=== PATIENT | male | born 1950 | race Caucasian/White ===

== ENCOUNTER 2017-03-21 09:14 | Day surgery (SDC) | payer BC, MEDICARE ==
[2017-03-17 08:55] VITALS: BMI 30.8
[~2017-03-21 09:14] MED LIST: LACTATED RINGERS 1,000 ML IV SCH
[2017-03-21 09:45] VITALS: TEMP 98.4
[2017-03-21] MEDS ORDERED: LIDOCAINE 1% 20 ML VIAL (10MG/ML) FOR IV START INTRADERMA ONE (09:45)
[2017-03-21] MEDS ORDERED: LIDOCAINE 1% INJ 10MG/ML (20 ML MDV) ONE (09:46)
[2017-03-21] MEDS ORDERED: PROPOFOL 10 MG/ML 20 ML VIAL IV ONE (09:46)
--- NOTE | 2017-03-21 10:03 | P.OP ---
Date of Procedure: 03/21/17 Preoperative Diagnosis: Screening colonoscopy Postoperative Diagnosis: Diverticulosis Procedure(s) Performed: Colonoscopy Anesthesia: MAC Surgeon: Daryl Llamas Pathology: none sent Condition: stable Disposition: PACU Description of Procedure: Patient's placed on the endoscopy table in the lateral position. He received IV sedation. Digital rectal exam was performed which revealed no abnormalities. The prostate was symmetrical without nodules. The flexible colonoscope was then placed patient anus and passed throughout the entire colon. The ileocecal valve was visualized. The cecum, ascending and transverse colon appeared normal. The descending and sigmoid colon had moderate diverticular changes. Scope was then brought back the rectum and this appeared normal. Scope was withdrawn for patient.
--- NOTE | 2017-03-21 10:04 | P.GSHP ---
History of Present Illness H&P Date: 03/21/17 Chief Complaint: Screening colonoscopy This a 66-year-old male referred from Dr. Moore. Patient rents today for screening colonoscopy. He denies a significant GI complaints. Past Medical History Past Medical History: Hypertension History of Any Multi-Drug Resistant Organisms: None Reported Additional Past Surgical History / Comment(s): colonoscopy Past Anesthesia/Blood Transfusion Reactions: No Reported Reaction Smoking Status: Former smoker - Past Family History Mother Family Medical History: Cancer Medications and Allergies Home Medications Medication Instructions Recorded Confirmed Type Losartan-Hctz 50-12.5 mg [Hyzaar 1 each PO DAILY 03/17/17 03/21/17 History 50-12.5] Allergies Allergy/AdvReac Type Severity Reaction Status Date / Time No Known Allergies Allergy Verified 03/21/17 09:24 Surgical - Exam Vital Signs Temp Pulse Resp BP Pulse Ox 98.4 F 84 18 136/75 96 03/21/17 09:44 03/21/17 09:44 03/21/17 09:44 03/21/17 09:44 03/21/17 09:44 - General well developed, no distress - Eyes PERRL - ENT normal pinna - Neck no masses - Respiratory normal expansion - Cardiovascular Rhythm: regular - Abdomen Abdomen: soft Assessment and Plan Assessment: We'll perform screening colonoscopy.
[2017-03-21 10:16] VITALS: BP 115/71; PULSE 81; RESP 16
== END 2017-03-21 10:33 | disposition home or self-care (01) ==
LOC: ORWHC2ENDO 09:14
PROVIDERS: ATTEND Surgery
DX: Z12.11 Encounter for screening for malignant neoplasm of colon (principal); K57.30 Diverticulosis of large intestine without perforation or abscess without bleeding; I10 Essential (primary) hypertension; Z79.899 Other long term (current) drug therapy; Z87.891 Personal history of nicotine dependence
CPT/HCPCS: J2001; J2704; G0121

== ENCOUNTER 2018-12-15 15:20 | Emergency (ER) | payer MEDICARE ==
[2018-12-15] MEDS ORDERED: ONDANSETRON 4 MG/2 ML VIAL IVP STA (16:08)
--- NOTE | 2018-12-15 16:15 | ED ---
Altered Mental Status HPI - General Source: patient, EMS Mode of arrival: EMS Limitations: no limitations <Gigi Garrison - Last Filed: 12/15/18 19:13> <Ahsan Shah - Last Filed: 12/15/18 21:35> - General Chief Complaint: Altered Mental Status Stated Complaint: Altered mental status Time Seen by Provider: 12/15/18 15:59 - History of Present Illness Initial Comments: Patient is a 68-year-old male presenting to emergency Department with a chief complaint of dizziness. Patient reports that he was walking when he felt a sudden onset of weakness and dizziness and went down on the table but never actually fell to the ground. His neighbor saw him and contacted EMS. Patient reports immediately after the episode of weakness which lasted approximately 5 minutes he developed sudden onset of nausea or vomiting. There is no episodes of shaking. At this time patient reports lightheadedness, nausea or vomiting but no chest pain, shortness of breath, abdominal pain or back pain. Patient is able to answer all questions. Patient denies any blurry vision, headaches, one- sided paresthesias or muscle weakness. (Gigi Garrison) - Related Data Home Medications Medication Instructions Recorded Confirmed Losartan [Cozaar] 50 mg PO DAILY 12/15/18 12/15/18 Allergies Allergy/AdvReac Type Severity Reaction Status Date / Time No Known Allergies Allergy Verified 12/15/18 19:38 Review of Systems ROS Other: All systems not noted in ROS Statement are negative. <Gigi Garrison - Last Filed: 12/15/18 19:13> ROS Other: All systems not noted in ROS Statement are negative. <Ahsan Shah - Last Filed: 12/15/18 21:35> ROS Statement: Those systems with pertinent positive or pertinent negative responses have been documented in the HPI. Past Medical History Past Medical History: Hypertension History of Any Multi-Drug Resistant Organisms: None Reported Additional Past Surgical History / Comment(s): colonoscopy Past Anesthesia/Blood Transfusion Reactions: No Reported Reaction Past Psychological History: No Psychological Hx Reported Smoking Status: Former smoker - Past Family History Mother Family Medical History: Cancer <Gigi Garrison - Last Filed: 12/15/18 19:13> General Exam Limitations: no limitations General appearance: alert, in no apparent distress Head exam: Present: atraumatic, normocephalic, normal inspection Eye exam: Present: normal appearance, PERRL, EOMI. Absent: conjunctival injection Pupils: Present: normal accommodation ENT exam: Present: normal exam, normal oropharynx, mucous membranes moist, TM's normal bilaterally, normal external ear exam Neck exam: Present: normal inspection, full ROM Respiratory exam: Present: normal lung sounds bilaterally Cardiovascular Exam: Present: regular rate, normal rhythm, normal heart sounds Extremities exam: Present: normal inspection, full ROM, normal capillary refill, other (+2 dorsalis pedis and posterior tibialis bilaterally.) Back exam: Present: normal inspection, full ROM Neurological exam: Present: alert, oriented X3, CN II-XII intact, reflexes normal. Absent: motor sensory deficit Psychiatric exam: Present: normal affect, normal mood Skin exam: Present: warm, intact, normal color <Gigi Garrison - Last Filed: 12/15/18 19:13> Course Vital Signs 12/15/18 12/15/18 12/15/18 15:34 16:55 17:21 Temperature 97.8 F Pulse Rate 81 72 89 Respiratory 18 18 18 Rate Blood Pressure 128/82 128/72 158/96 O2 Sat by Pulse 96 100 100 Oximetry 12/15/18 12/15/18 19:40 20:25 Temperature 97.8 F Pulse Rate 90 82 Respiratory 15 16 Rate Blood Pressure 149/90 155/89 O2 Sat by Pulse 96 95 Oximetry Medical Decision Making - Lab Data Result diagrams: 12/15/18 15:52 12/15/18 15:52 <Ggii Garrison - Last Filed: 12/15/18 19:13> - Lab Data Result diagrams: 12/15/18 15:52 12/15/18 15:52 <Ahsan Shah - Last Filed: 12/15/18 21:35> - Medical Decision Making Rectal decision making; this is a 68-year-old male we press that approximately 3 PM today while sitting with friends he slumped forward onto a table. He was unresponsive to them though he states he thought he could hear them talking. Soon thereafter he vomited several times for an hour denying any headache or chest pain or shortness of breath. He came to the emergency room. emergency room workup included lab work and CAT scan. CAT scan report to be negative. EKG was done showing sinus rhythm with first-degree AV block rare PVCs, incomp lete right bundle branch block currently no old EKG available to compare to. Neurologically the patient was attacked soon after arrival to the emergency room. No focal or lateralizing findings could be found. Repeat neuro exam performed at 9:15 PM, finds the patient to be neurologically intact.. Lungs are clear heart no murmur. Patient and family's questions were answered. No neurologist available at this facility so patient will be transferred to [facility]. Case discussed with Dr. Yanez at [facility] who accepts patient for transfer evaluation by the neurological service. Dr. Shah (PabloAhsan) - Lab Data Lab Results 12/15/18 12/15/18 12/15/18 Range/Units 15:52 15:52 15:52 WBC 4.5 (3.8-10.6) k/uL RBC 4.49 (4.30-5.90) m/uL Hgb 14.4 (13.0-17.5) gm/dL Hct 43.0 (39.0-53.0) % MCV 95.9 (80.0-100.0) fL MCH 32.1 (25.0-35.0) pg MCHC 33.5 (31.0-37.0) g/dL RDW 12.2 (11.5-15.5) % Plt Count 147 L (150-450) k/uL Neutrophils % 58 % Lymphocytes % 31 % Monocytes % 5 % Eosinophils % 3 % Basophils % 1 % Neutrophils # 2.6 (1.3-7.7) k/uL Lymphocytes # 1.4 (1.0-4.8) k/uL Monocytes # 0.2 (0-1.0) k/uL Eosinophils # 0.1 (0-0.7) k/uL Basophils # 0.0 (0-0.2) k/uL PT 10.2 (9.0-12.0) sec INR 0.9 (<1.2) APTT 21.2 L (22.0-30.0) sec Sodium 141 (137-145) mmol/L Potassium 3.7 (3.5-5.1) mmol/L Chloride 108 H (98-107) mmol/L Carbon Dioxide 22 (22-30) mmol/L Anion Gap 11 mmol/L BUN 17 (9-20) mg/dL Creatinine 1.05 (0.66-1.25) mg/dL Est GFR (CKD-EPI)AfAm 85 (>60 ml/min/1.73 sqM) Est GFR (CKD-EPI)NonAf 74 (>60 ml/min/1.73 sqM) Glucose 128 H (74-99) mg/dL Calcium 9.1 (8.4-10.2) mg/dL Total Bilirubin 0.4 (0.2-1.3) mg/dL AST 27 (17-59) U/L ALT 30 (21-72) U/L Alkaline Phosphatase 53 (38-126) U/L Troponin I (0.000-0.034) ng/mL Total Protein 7.0 (6.3-8.2) g/dL Albumin 4.2 (3.5-5.0) g/dL 12/15/18 Range/Units 15:52 WBC (3.8-10.6) k/uL RBC (4.30-5.90) m/uL Hgb (13.0-17.5) gm/dL Hct (39.0-53.0) % MCV (80.0-100.0) fL MCH (25.0-35.0) pg MCHC (31.0-37.0) g/dL RDW (11.5-15.5) % Plt Count (150-450) k/uL Neutrophils % % Lymphocytes % % Monocytes % % Eosinophils % % Basophils % % Neutrophils # (1.3-7.7) k/uL Lymphocytes # (1.0-4.8) k/uL Monocytes # (0-1.0) k/uL Eosinophils # (0-0.7) k/uL Basophils # (0-0.2) k/uL PT (9.0-12.0) sec INR (<1.2) APTT (22.0-30.0) sec Sodium (137-145) mmol/L Potassium (3.5-5.1) mmol/L Chloride (98-107) mmol/L Carbon Dioxide (22-30) mmol/L Anion Gap mmol/L BUN (9-20) mg/dL Creatinine (0.66-1.25) mg/dL Est GFR (CKD-EPI)AfAm (>60 ml/min/1.73 sqM) Est GFR (CKD-EPI)NonAf (>60 ml/min/1.73 sqM) Glucose (74-99) mg/dL Calcium (8.4-10.2) mg/dL Total Bilirubin (0.2-1.3) mg/dL AST (17-59) U/L ALT (21-72) U/L Alkaline Phosphatase (38-126) U/L Troponin I <0.012 (0.000-0.034) ng/mL Total Protein (6.3-8.2) g/dL Albumin (3.5-5.0) g/dL - EKG Data EKG Comments: First-degree AV block, no ST elevations Ventricular rate 79, MD interval 210, QRS duration 108, QT/QTC 396/454 (Gigi Garrison) Disposition <Gigi Garrison - Last Filed: 12/15/18 19:13> - Out of Hospital Transfer - Req. Specs Out of Hospital Transfer - Requested Specifics: Other Emergency Center ([facility]) <Ahsan Shah - Last Filed: 12/15/18 21:35> Clinical Impression: TIA (transient ischemic attack) Disposition: OTHER INSTITUTION NOT DEFINED Condition: Fair Instructions (If sedation given, give patient instructions): Altered Mental Status (ED), Transient Ischemic Attack (ED) Referrals: Jm Moore DO [Primary Care Provider] - 1-2 days
[2018-12-15 16:20] LABS: Basophils % (A) 1 %; Eosinophils # (A) 0.1 k/uL (0-0.7); Eosinophils % (A) 3 %; HGB 14.4 gm/dL (13.0-17.5); Lymphocytes # (A) 1.4 k/uL (1.0-4.8); Lymphocytes % (A) 31 %; MCH 32.1 pg (25.0-35.0); MCHC 33.5 g/dL (31.0-37.0); MCV 95.9 fL (80.0-100.0); Monocytes # (A) 0.2 k/uL (0-1.0); Monocytes % (A) 5 %; Neutrophils # (A) 2.6 k/uL (1.3-7.7); Neutrophils % (A) 58 %; Platelet Count 147 k/uL (150-450); RBC 4.49 m/uL (4.30-5.90); RDW 12.2 % (11.5-15.5); WBC 4.5 k/uL (3.8-10.6)
[2018-12-15 16:30] LABS: Albumin 4.2 g/dL (3.5-5.0); Calcium 9.1 mg/dL (8.4-10.2); Potassium 3.7 mmol/L (3.5-5.1); Total Bilirubin 0.4 mg/dL (0.2-1.3)
[2018-12-15 16:39] LABS: INR 0.9 (<1.2); Partial Thromboplastin Time 21.2 sec (22.0-30.0); Prothrombin Time 10.2 sec (9.0-12.0)
--- NOTE | 2018-12-15 16:54 | XR ---
EXAMINATION TYPE: XR chest 2V DATE OF EXAM: 12/15/2018 COMPARISON: NONE HISTORY: Altered mental status TECHNIQUE: Frontal and lateral views of the chest are obtained. FINDINGS: There is no heart failure nor confluent pneumonic infiltrate. Costophrenic angles are areli r. Bony thorax is intact. There is slight elevated right diaphragm. IMPRESSION: Slight elevated right diaphragm could relate to partial paralysis. Normal heart. No hear t failure.
--- NOTE | 2018-12-15 19:38 | CT ---
EXAMINATION TYPE: CT brain wo con DATE OF EXAM: 12/15/2018 COMPARISON: None HISTORY: ams, vomiting CT DLP: 1165.4 mGycm Automated exposure control for dose reduction was used. FINDINGS: Ventricles and sulci appear normal. There is no mass effect nor midline shift. There is no sign of in tracranial hemorrhage. The calvarium is intact. IMPRESSION: NEGATIVE CT SCAN OF THE BRAIN.
[2018-12-15] MEDS ORDERED: SODIUM CHLORIDE 0.9% 1,000 ML IV SCH (20:00)
[2018-12-15 22:02] VITALS: BP 141/84; PULSE 75; RESP 15; TEMP 97.2
[2018-12-15 22:05] LABS: Appearance,Urine Clear (Clear); Bilirubin,Urine Negative (Negative); Blood,Urine Negative (Negative); Color,Urine Yellow; Glucose,Urine (UA) Negative (Negative); Ketones,Urine Negative (Negative); Leukocyte Esterase,Urine Negative (Negative); Nitrite,Urine Negative (Negative); Protein,Urine Negative (Negative); Specific Gravity,Urine 1.011 (1.001-1.035); Urobilinogen,Urine <2.0 mg/dL (<2.0)
[2018-12-15 22:21] LABS: Amphetamine Screen,Urine Not Detected (NotDetected); Barbiturate Screen,Urine Not Detected (NotDetected); Benzodiazepines Screen,Urine Not Detected (NotDetected); Cocaine Screen,Urine Not Detected (NotDetected); Methadone Screen, Urine Not Detected (NotDetected); Opiate Screen,Urine Not Detected (NotDetected); Oxycodone Screen, Urine Not Detected (NotDetected); Phencyclidine Screen,Urine Not Detected (NotDetected); Tricyclic Antidepressant,Urine Not Detected (NotDetected); Urn Cannabinoid Scrn Detected (NotDetected)
== END 2018-12-15 22:15 | disposition short-term general hospital (02) ==
LOC: EC 15:20
DX: G45.9 Transient cerebral ischemic attack, unspecified (principal); I44.0 Atrioventricular block, first degree; I49.3 Ventricular premature depolarization; I45.10 Unspecified right bundle-branch block; R11.2 Nausea with vomiting, unspecified; I10 Essential (primary) hypertension; Z87.891 Personal history of nicotine dependence; Z79.899 Other long term (current) drug therapy
CPT/HCPCS: 36415; 93005; 80053; 84484; 85025; 85610; 85730; 81003; 80306; 71046; 70450; 99285; 96374; 96361 ×2; J2405

== ENCOUNTER 2021-01-23 11:40 | Emergency (ER) | payer MEDICARE ==
[2021-01-23 11:47] VITALS: PULSE 89; TEMP 98
[2021-01-23] MEDS: hydrALAZINE HCL 20 MG/ML 1 ML VIAL IVP STA ×2 (12:28→14:17)
[2021-01-23 12:42] LABS: Basophils % (A) 1 %; Eosinophils # (A) 0.1 k/uL (0-0.7); Eosinophils % (A) 3 %; HGB 15.7 gm/dL (13.0-17.5); Hyperchromasia Slight; Lymphocytes # (A) 1.3 k/uL (1.0-4.8); Lymphocytes % (A) 41 %; MCH 34.2 pg (25.0-35.0); MCHC 36.5 g/dL (31.0-37.0); MCV 93.6 fL (80.0-100.0); Mean Platelet Volume 8.3; Monocytes # (A) 0.2 k/uL (0-1.0); Monocytes % (A) 7 %; Neutrophils # (A) 1.4 k/uL (1.3-7.7); Neutrophils % (A) 44 %; Platelet Count 129 k/uL (150-450); RBC 4.59 m/uL (4.30-5.90); RDW 12.6 % (11.5-15.5); WBC 3.1 k/uL (3.8-10.6)
[2021-01-23 12:46] LABS: Calcium 9.1 mg/dL (8.4-10.2); Magnesium 2.3 mg/dL (1.6-2.3); Potassium 4.1 mmol/L (3.5-5.1)
--- NOTE | 2021-01-23 12:53 | ED ---
General Adult HPI - General Chief complaint: Recheck/Abnormal Lab/Rx Stated complaint: High Blood Pressure Time Seen by Provider: 01/23/21 12:07 Source: patient, EMS, RN notes reviewed, old records reviewed Mode of arrival: EMS Limitations: no limitations - History of Present Illness Initial comments: Patient is a 70-year-old male with past medical history remarkable for hypertension and has not followed up with the PCP in 2 years presents emergency department over concern for hypertension. He is concerned that his blood pressure requires better control, and has noticed over the last few days that when he monitors at home, and is slightly elevated.He may have burst blood vessel over his right eyelid over this time as well. 2 days ago he did have a mild unilateral headache that was approximately 110 resolved with a mild dose of aspirin. His no other acute complaints at this time. Denies any chest pain, shortness of breath, abdominal pain, nausea, vomiting. Has no back pain, lower extremity weakness or edema. Denies any numbness or weakness or sensory deficits. He has no other acute complaints at this time. He is on losartan 50 mg at home for his hypertension. He was, chills, sick contacts. No history of brain aneurysms in himself or family members. His no other acute complaints at this time. He presents over concern for his hypertension. He states he is compliant with his medications. I evaluated the patient when he was placed in a room. Patient is not on blood thinners. - Related Data Home Medications Medication Instructions Recorded Confirmed Losartan [Cozaar] 50 mg PO DAILY 12/15/18 01/23/21 Glucosam/Eulalio-Msm1/C/Roni/Bosw 1 tab PO DAILY 01/23/21 01/23/21 [Glucosamine-Chondroitin Tablet] Multivitamins, Thera [Multivitamin 1 tab PO DAILY 01/23/21 01/23/21 (formulary)] Allergies Allergy/AdvReac Type Severity Reaction Status Date / Time No Known Allergies Allergy Verified 01/23/21 13:01 Review of Systems ROS Statement: Those systems with pertinent positive or pertinent negative responses have been documented in the HPI. Review of Systems: CONST: Denies fever EYES: Denies blurry vision ENT: Denies nasal congestion C/V: Denies Chest pain RESP: Denies shortness of breath GI: Denies abdominal pain : Denies dysuria SKIN: Denies rash. MSK: Denies joint pain. NEURO: Denies headache ROS Other: All systems not noted in ROS Statement are negative. Past Medical History Past Medical History: Hypertension History of Any Multi-Drug Resistant Organisms: None Reported Additional Past Surgical History / Comment(s): colonoscopy Past Anesthesia/Blood Transfusion Reactions: No Reported Reaction Past Psychological History: No Psychological Hx Reported Smoking Status: Never smoker Past Alcohol Use History: Daily Past Drug Use History: Marijuana - Past Family History Mother Family Medical History: Cancer General Exam - General Exam Comments Initial Comments: General: Appears in no acute distress. HEAD: Normal with no signs of head trauma. EYES: PERRLA, EOMI, conjunctiva normal, no discharge. Pupils are 3 mm equal bilaterally. ENT: Hearing grossly intact, normal oropharynx. RESPIRATORY: Clear breath sounds bilaterally. No wheezes, rales, or rhonchi. C/V: Regular rate and rhythm. S1 and S2 auscultated, no edema, peripheral pulses 2+ and intact throughout ABD: Abd is soft, nontender, nondistended EXT: Normal range of motion, no obvious deformity SKIN: No rashes or lesions observed on exposed skin. Patient does have bruising on his right upper eyelid that is nontender. He is to be possibly a burst blood vessel. No eye involvement. NEURO: Alert and oriented x 4. Cranial nerves II-XII intact. No focal sensory or strength deficits. Patient is able to ambulate without difficulty. NIH is 0. GCS is 15. Cerebellar function is intact as evident by normal finger to nose testing. Limitations: no limitations Course Vital Signs 01/23/21 01/23/21 01/23/21 11:44 12:00 12:28 Temperature 98.0 F Pulse Rate 89 Respiratory 20 Rate Blood Pressure 204/123 199/114 192/109 O2 Sat by Pulse 97 97 Oximetry 01/23/21 01/23/21 01/23/21 13:00 13:46 13:52 Temperature Pulse Rate Respiratory 18 Rate Blood Pressure 178/103 174/66 181/105 O2 Sat by Pulse Oximetry 01/23/21 01/23/21 01/23/21 14:00 14:13 15:00 Temperature Pulse Rate Respiratory Rate Blood Pressure 181/105 182/102 171/93 O2 Sat by Pulse Oximetry 01/23/21 15:15 Temperature Pulse Rate Respiratory Rate Blood Pressure 175/94 O2 Sat by Pulse Oximetry Medical Decision Making - Medical Decision Making Based on the patient's presentation and physical exam, he appears to be experiencing asymptomatic hypertension with a history of hypertension at this time. Blood pressure was over 200 systolic in triage. Patient does state he is anxious and is concerned that something may be going on. However he has no acute complaints otherwise at this time. States he did take his 50 mg losartan today. However I would like to obtain a screening EKG as well as screening labo ratory studies including assessing kidney function. He'll be administered 10 mg of IV hydralazine. Blood pressure is already improving from over 200 systolic to 190 systolic here in the department. He'll be continued on continuous cardiac monitoring. Patient was in agreement this plan. Patient's EKG showed normal sinus rhythm with no signs of acute ischemia.Chest x-ray showed no acute cardiopulmonary process. Laboratory studies are unremarkable except for mild thrombocytopenia of 129, which appears to be chronic.. Following antihypertensive medication, patient's blood pressure is improved. Patient remains asymptomatic at this time. As the patient is expressing a symptomatically hypertension, I do not believe that we need to aggressively lower it at this time. He does have plans to follow-up with his physician first thing next week. I believe it is safe for him to be discharged home at this time. I instructed the patient to follow up with their PCP in the next 3 days. I explained that the patient should return to the emergency department if they exp erience any worsening symptoms. Strict return precautions were discussed with the patient. The patient expressed understanding of these instructions. I answered all questions that the patient had. The patient was discharged home in good condition with their prescriptions and follow up information. - Lab Data Result diagrams: 01/23/21 12:21 01/23/21 12:21 Lab Results 01/23/21 01/23/21 Range/Units 12:21 12:21 WBC 3.1 L (3.8-10.6) k/uL RBC 4.59 (4.30-5.90) m/uL Hgb 15.7 (13.0-17.5) gm/dL Hct 43.0 (39.0-53.0) % MCV 93.6 (80.0-100.0) fL MCH 34.2 (25.0-35.0) pg MCHC 36.5 (31.0-37.0) g/dL RDW 12.6 (11.5-15.5) % Plt Count 129 L (150-450) k/uL MPV 8.3 Neutrophils % 44 % Lymphocytes % 41 % Monocytes % 7 % Eosinophils % 3 % Basophils % 1 % Neutrophils # 1.4 (1.3-7.7) k/uL Lymphocytes # 1.3 (1.0-4.8) k/uL Monocytes # 0.2 (0-1.0) k/uL Eosinophils # 0.1 (0-0.7) k/uL Basophils # 0.0 (0-0.2) k/uL Hyperchromasia Slight Sodium 138 (137-145) mmol/L Potassium 4.1 (3.5-5.1) mmol/L Chloride 108 H (98-107) mmol/L Carbon Dioxide 24 (22-30) mmol/L Anion Gap 6 mmol/L BUN 13 (9-20) mg/dL Creatinine 1.08 (0.66-1.25) mg/dL Est GFR (CKD-EPI)AfAm 81 (>60 ml/min/1.73 sqM) Est GFR (CKD-EPI)NonAf 70 (>60 ml/min/1.73 sqM) Glucose 123 H (74-99) mg/dL Calcium 9.1 (8.4-10.2) mg/dL Magnesium 2.3 (1.6-2.3) mg/dL - EKG Data -: EKG Interpreted by Me EKG Comments: 12-lead Electrocardiogram Interpretation Note EKG was reviewed and interpreted by myself. 12-lead ECG performed at 1246 is interpreted by me as revealing normal sinus rhythm at a rate of 83 beats per minute. Rankin is normal. MD interval is 184 ms, QRS duration is 100 ms, QTc is 441 ms.. There were no ST or T wave abnormalities to suggest myocardial ischemia or injury. R wave progression across the precordium was satisfactory. By my interpretation this EKG is non-diagnostic for acute ischemia. Disposition Clinical Impression: Asymptomatic hypertension Disposition: HOME SELF-CARE Condition: Good Instructions (If sedation given, give patient instructions): Hypertension (ED) Is patient prescribed a controlled substance at d/c from ED?: No Referrals: Jm Moore DO [Primary Care Provider] - 1-2 days
[2021-01-23] MEDS ORDERED: ASPIRIN 81 MG PO STA (13:06)
--- NOTE | 2021-01-23 13:47 | XR ---
EXAMINATION TYPE: XR chest 2V DATE OF EXAM: 01/23/2021 COMPARISON: Chest x-ray December 15, 2018 HISTORY: Hypertension and chest pain TECHNIQUE: Frontal and lateral views of the chest are obtained. FINDINGS: There is no suspicious new focal air space opacity, pleural effusion, or pneumothorax seen . The cardiac silhouette size is stable and within normal limits. The osseous structures are intac t. IMPRESSION: No acute process. No significant change from prior.
[2021-01-23 13:53] VITALS: RESP 18
[2021-01-23 15:16] VITALS: BP 175/94
== END 2021-01-23 15:33 | disposition home or self-care (01) ==
LOC: EC 11:40
DX: I10 Essential (primary) hypertension (principal); F12.90 Cannabis use, unspecified, uncomplicated; Z79.899 Other long term (current) drug therapy
CPT/HCPCS: 36415; 93005; 80048; 83735; 85025; 71046; 99284; 96374; J0360

== ENCOUNTER 2021-04-30 12:04 | Emergency (ER) | payer MEDICARE ==
[2021-04-30 12:15] VITALS: RESP 18; TEMP 98.3
[2021-04-30] MEDS ORDERED: HYDROmorphone 0.5 MG/0.5 ML SYRINGE IVP STA ×2 (12:48→14:22)
[2021-04-30] MEDS ORDERED: KETOROLAC 30 MG/ML 1 ML VIAL IVP STA (12:48)
--- NOTE | 2021-04-30 13:29 | XR ---
EXAMINATION TYPE: XR wrist complete LT DATE OF EXAM: 04/30/2021 COMPARISON: None available INDICATION: Pain and fall TECHNIQUE: 4 views of the left wrist FINDINGS: Comminuted fracture involving the distal radial metaphysis extending to the distal radioulnar articul ation and radiocarpal articulation. Dorsal angulation of the distal fracture fragment with bone fragments measuring up to 18 mm. Suspected tiny avulsion fracture of the ulnar styloid process. Tiny osteophytosis of the radiocarpal articulation. IMPRESSION: Fractured distal radius with suspected tiny avulsion fracture of the ulnar styloid process as describ ed above. Recommend orthopedic consultation.
[2021-04-30] MEDS ORDERED: ACET/COD 300 MG/30 MG STARTER PACK 6 TAB BTL PO STA (13:41)
--- NOTE | 2021-04-30 13:41 | ED ---
General Adult HPI - General Chief complaint: Extremity Injury, Upper Stated complaint: Fall/Lt Arm Injury Time Seen by Provider: 04/30/21 12:15 Source: patient, RN notes reviewed, old records reviewed Mode of arrival: ambulatory Limitations: no limitations - History of Present Illness Initial comments: This a 70-year-old male who presents to the emergency department stating that he fell and landed on a log onto his left wrist. Patient has deformity left wrist he came in because he is concerned that it might broke his wrist. Patient denies any elbow pain or hand pain. Patient denies any shoulder pain. Patient denies any head or neck pain. Patient denies any other complaints at this time. Patient states he slipped on the ice and that was the cause of the fall. - Related Data Home Medications Medication Instructions Recorded Confirmed Glucosam/Eulalio-Msm1/C/Roni/Bosw 1 tab PO DAILY 01/23/21 04/30/21 [Glucosamine-Chondroitin Tablet] Multivitamins, Thera [Multivitamin 1 tab PO DAILY 01/23/21 04/30/21 (formulary)] Ibuprofen [Motrin Ib] 600 mg PO Q8H PRN 04/30/21 04/30/21 Losartan-Hctz 50-12.5 mg [Hyzaar 1 tab PO DAILY 04/30/21 04/30/21 50-12.5] Previous Rx's Medication Instructions Recorded Ibuprofen [Motrin] 600 mg PO Q6HR PRN #20 tab 04/30/21 Allergies Allergy/AdvReac Type Severity Reaction Status Date / Time No Known Allergies Allergy Verified 01/23/21 13:01 Review of Systems ROS Statement: Those systems with pertinent positive or pertinent negative responses have been documented in the HPI. ROS Other: All systems not noted in ROS Statement are negative. Past Medical History Past Medical History: Hypertension History of Any Multi-Drug Resistant Organisms: None Reported Additional Past Surgical History / Comment(s): colonoscopy Past Anesthesia/Blood Transfusion Reactions: No Reported Reaction Past Psychological History: No Psychological Hx Reported Smoking Status: Never smoker Past Alcohol Use History: Daily Past Drug Use History: Marijuana - Past Family History Mother Family Medical History: Cancer General Exam - General Exam Comments Initial Comments: GENERAL Patient is well-developed and well-nourished. Patient is in mild distress. EYES Patient's pupils are equal and round. Extraocular motion is intact SKIN Unremarkable NEURO The patient is alert and oriented 3 PYSCH Patient has normal interpersonal interactions. MUSCULOSKELETAL Patient has deformity of the left breast and is tender and swollen about the wrist. Limitations: no limitations Course Vital Signs 04/30/21 12:13 Temperature 98.3 F Pulse Rate 104 H Respiratory 18 Rate Blood Pressure 185/83 O2 Sat by Pulse 98 Oximetry Procedures - Orthopedic Splinting/Casting Injury #1 Side: left Upper Extremity Injury Location: wrist Upper Extremity Immobilizer: volar splint Medical Decision Making - Medical Decision Making X-ray shows a distal radius fracture with a small avulsion fracture of the ulna. There is minimal displacement. Disposition Clinical Impression: Fracture of radius and ulna near wrist Disposition: HOME SELF-CARE Condition: Good Instructions (If sedation given, give patient instructions): Wrist Fracture in Adults (ED) Prescriptions: Ibuprofen [Motrin] 600 mg PO Q6HR PRN #20 tab PRN Reason: For pain Is patient prescribed a controlled substance at d/c from ED?: No Referrals: Faisal Wei MD [STAFF PHYSICIAN] - 1-2 days Time of Disposition: 13:41
[2021-04-30 14:35] VITALS: BP 152/95; PULSE 93
== END 2021-04-30 14:32 | disposition home or self-care (01) ==
LOC: EC 12:04
DX: S52.502A Unspecified fracture of the lower end of left radius, initial encounter for closed fracture (principal); S52.602A Unspecified fracture of lower end of left ulna, initial encounter for closed fracture; I10 Essential (primary) hypertension; F12.90 Cannabis use, unspecified, uncomplicated; W18.30XA Fall on same level, unspecified, initial encounter
CPT/HCPCS: 99283; 96374; 96375; 96376; 29125; 73110; J1885; J1170

== ENCOUNTER → 2021-05-01 | Outpatient (CLI) | payer MEDICARE ==
[2021-05-01 23:17] LABS: HCT 45.9 % (39.6-50.0); HGB 15.5 g/dL (13.0-17.0); MCH 31.6 pg (27.0-32.0); MCHC 33.8 g/dL (32.0-37.0); MCV 93.7 fL (80.0-97.0); Mean Platelet Volume 10.6 fL (9.5-12.2); NRBC Per 100 WBC 0 /100 WBCS (0.0-0.0); Platelet Count 148 X 10*3/uL (140-440); RDW 12.1 % (11.5-14.5); WBC 4.66 X 10*3/uL (4.50-10.00)
[2021-05-02 02:56] LABS: Anion Gap 12.5 mmol/L (10.00-18.00); Carbon Dioxide 23.5 mmol/L (20.0-27.5)
== END | disposition home or self-care (01) ==
LOC: LABPAT 14:32
PROVIDERS: ATTEND Orthopaedic Surgery
DX: Z01.812 Encounter for preprocedural laboratory examination (principal); S52.572A Other intraarticular fracture of lower end of left radius, initial encounter for closed fracture; X58.XXXA Exposure to other specified factors, initial encounter
CPT/HCPCS: 80051; 85027

== ENCOUNTER 2021-05-05 05:48 | Day surgery (SDC) | payer MEDICARE ==
[2021-05-04 09:12] VITALS: BMI 31.4
--- NOTE | 2021-05-04 09:38 | HP ---
HISTORY AND PHYSICAL CHIEF COMPLAINT: Left wrist pain. HISTORY OF PRESENT ILLNESS: The patient is a 70-year-old retired gentleman who presents with left wrist pain after an injury on 04/30/2021. He slipped and fell on the ice at home. Initially he was seen in the emergency room and placed in a splint. He denies previous injury. PAST MEDICAL HISTORY: Significant for hypertension. PAST SURGICAL HISTORY: Negative. CURRENT MEDICATIONS: Hydrocodone and losartan. ALLERGIES: HE DENIES DRUG ALLERGIES. FAMILY HISTORY: Significant for cancer. SOCIAL HISTORY: Significant for tobacco use. REVIEW OF SYSTEMS: Sixteen-point review of systems otherwise reviewed and is noncontributory. PHYSICAL EXAMINATION: On examination, the patient is approximately 6 feet 2 inches, 245 pounds of endomorphic habitus. HEENT exam is nonfocal. Neck is supple. He is nontender about the left shoulder and elbow. On examination of his left wrist, he has moderate swelling. He has tenderness over the distal radius. He has limited motion secondary to pain. His distal neurovascular exam appears intact in the digits. 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 He has moderate digital stiffness. X-rays of the left wrist obtained at the hospital show an intra-articular distal radius fracture with dorsal comminution and moderate displacement. This appears to be a three- part fracture. IMPRESSION: Left three-part intra-articular distal radius fracture, displaced/comminuted. RECOMMENDATIONS: I talked to the patient at length regarding his condition along with treatment options. At this point I recommend proceeding with surgical intervention. We will plan to proceed with open reduction and internal fixation of this fracture. We will potentially perform that as an outpatient procedure. Risks and benefits were discussed at length in layman's terms. MMODL / IJN: [id number] /
[2021-05-05] MEDS ORDERED: LACTATED RINGERS 1,000 ML IV SCH (06:02)
[2021-05-05] MEDS ORDERED: ONDANSETRON 4 MG/2 ML VIAL IVP ONE (06:02)
[2021-05-05] MEDS ORDERED: LIDOCAINE 1% (10MG/ML) FOR IV START INTRADERMA PRN (06:02)
[2021-05-05] MEDS ORDERED: HYDROmorphone 0.5 MG/0.5 ML SYRINGE IVP PRN (07:00)
[2021-05-05] MEDS ORDERED: fentaNYL (PF) 50 MCG/ML 2 ML AMP IV ONE (07:05)
[2021-05-05] MEDS ORDERED: MIDAZOLAM 2 MG/2 ML VIAL IV ONE (07:05)
[2021-05-05] MEDS ORDERED: PROPOFOL 10 MG/ML 20 ML VIAL IV ONE (07:20)
[2021-05-05] MEDS ORDERED: SODIUM CHLORIDE 0.9% (PF) 10 ML VIAL ONE (07:20)
[2021-05-05] MEDS ORDERED: PHENYLEPHRINE-0.9% NACL SYG 1,000 MCG/10 ML SYRINGE ONE (07:20)
[2021-05-05] MEDS ORDERED: ROPIVACAINE 5 MG/ML 30 ML VIAL ONE (07:20)
[2021-05-05] MEDS ORDERED: LIDOCAINE 1% INJ 10MG/ML (20 ML MDV) ONE (07:20)
[2021-05-05] MEDS ORDERED: ceFAZolin 1,000 MG in SODIUM CHLORIDE 0.9% 1,000 ML IRRIGATION ONE (07:58)
[2021-05-05] MEDS ORDERED: LACTATED RINGERS 1,000 ML IV ONE (08:54)
--- NOTE | 2021-05-05 09:18 | P.OP ---
Date of Procedure: 05/05/21 Preoperative Diagnosis: Displaced three-part intra-articular left distal radius fracture Postoperative Diagnosis: Same Procedure(s) Performed: Open reduction and internal fixation left 3 part intra-articular distal radius fracture Implants: Arthrex wide 3-hole volar distal radial plate Anesthesia: tanja NELSON Surgeon: Faisal Wei Utility Maintenance Worker #1: Govind Israel Estimated Blood Loss (ml): 10 Pathology: none sent Condition: stable Disposition: PACU Indications for Procedure: The patient's a 70-year-old male presents with left wrist pain after recent fall. Upon evaluation he was noted to have displaced intra-articular left distal radius fracture. A discussion of the risks and benefits of operative intervention was made with patient. He opted to proceed with surgery. Operative risks to include infection, neurovascular injury, development of blood clots, possible development of nonunion/malunion for subsequent procedures was discussed. Informed consent was obtained. Operative Findings: as below Description of Procedure: The patient was brought to the operating room, and after induction of general anesthesia the left upper extremity was prepped and draped in normal fashion. The tourniquet was inflated to 250 mmHg. An 8 cm incision was then made along the volar radial aspect of the left wrist centered over the flexor carpi radialis. The skin and subcu tissues were divided sharply. Electrocautery was used for hemostasis. The flexor carpi radialis sheath was opened and the tendon was gently retracted ulnarly and the radial artery retracted radially. The underlying fascia was opened. The contents the carpal canal were bluntly dissected ulnarly. A self-retaining retractor was placed. The pronator quadratus was elevated off the radial aspect the distal radius. The fracture site was identified and cleaned of clot and debris. The fracture was then provisionally reduced with longitudinal traction and manipulation. This is verified with fluoroscopy. A wide 3 hole volar plate was placed provisionally along the volar surface. This was held with K wires. This was verified with fluoroscopy. A 3.5 mm cortical screws placed proximally to secure the plate against the distal radius. I then placed partially threaded locking pegs along the distal row. Again this was done with the aid of fluoroscopy. The proximal row was filled in a similar fashion with the appropriate length locking pegs. The remaining 3.5 mm cortical screws were placed proximally. Final fluoroscopic views to include AP, PA, and elevated lateral showed adequate reduction of the fracture and placement of the implant. The articular surface appeared to be well aligned with less than 1 mm articular step-off. The wound was irrigated with normal saline. The pronator quadratus was repaired with simple 3-0 Vicryl suture. The subcu tissues reapproximated interrupted 3-0 Vicryl suture. The skin was reprepped with 4-0 subcuticular Prolene suture. Steri-Strips were applied. The tourniquet was deflated with approximately 1 hour total tourniquet time. A sterile dressing was applied in addition to a volar splint. The patient was awoken from general anesthesia and transferred to the recovery room in good condition. Blood loss was estimated at 10 mL. No complications were incurred. Sponge and needle counts were correct at the end the case. Govind HANCOCK assisted during the major components the case to include positioning, exposure, implantation, and closure.
[2021-05-05 09:32] VITALS: TEMP 97.7
--- NOTE | 2021-05-05 09:42 | XR ---
EXAMINATION TYPE: XR wrist limited LT DATE OF EXAM: 05/05/2021 COMPARISON: X-ray dated the 04/30/2021 INDICATION: Distal radial ORIF TECHNIQUE: No images in PACS FINDINGS: Fluoroscopic guided ORIF of distal radial fracture. Fluoroscopic time 38 seconds. No images in PACS. IMPRESSION: As above
[2021-05-05 10:01] VITALS: RESP 20
--- NOTE | 2021-05-05 10:14 | P.ANPRN ---
Procedure Note - Anesthesia - Nerve Block Performed Left Axillary Single Time Out Performed: Yes ([id number]) Date of Procedure: 05/05/21 Procedure Start Time: 07:05 Procedure Stop Time: 07:12 Location of Patient: PreOp Indication: Acute Post-Operative Pain, Requested by Surgeon Specifically requested for management of pain by DrMagdy: Faisal Wei Sedation Type: Sedate with meaningful contact maintained Preparation: Sterile Prep Position: Supine Catheter: None Needle Types: Pajunk Needle Gauge: 21 Ultrasound used to visualize needle placement: Yes Ultrasound used to observe medication spread: Yes Injectate: 0.5% Ropivacaine (see comment for volume) (30cc + 10cc saline. 10cc each radial, median, ulnar, mskcut) Blood Aspirated: No Pain Paresthesia on Injection Noted: No Resistance on Injection: Normal Image Stored and Saved: Yes Events: Uneventful and Well Tolerated
[2021-05-05] MEDS ORDERED: Acetaminophen-Codeine 300-30mg TAB PO ONE ×2 (10:20→10:22)
[2021-05-05] MEDS ORDERED: Acetaminophen-Codeine 300-30mg TAB ONE (10:20)
--- NOTE | 2021-05-05 10:20 | FL ---
EXAMINATION TYPE: FL guidance operating room DATE OF EXAM: 05/05/2021 CLINICAL HISTORY: ORIF distal radius TECHNIQUE: Fluoroscopy. COMPARISON: X-ray dated 04/30/2021 FINDINGS: Fluoroscopic guidance was provided during procedure performed by the orthopedic surgeon. A total of 38 seconds of fluoroscopic time was utilized during the procedure and 3 spot images were ac quired. ORIF of the distal radial fracture using a plate and multiple screws. Slightly negative ulnar variance. IMPRESSION: As Above.
[2021-05-05 10:30] VITALS: BP 149/76; PULSE 74
== END 2021-05-05 10:50 | disposition home or self-care (01) ==
LOC: OR 05:48
PROVIDERS: ATTEND Orthopaedic Surgery
DX: S52.572A Other intraarticular fracture of lower end of left radius, initial encounter for closed fracture (principal); W00.0XXA Fall on same level due to ice and snow, initial encounter; I10 Essential (primary) hypertension; Z80.9 Family history of malignant neoplasm, unspecified; Z79.891 Long term (current) use of opiate analgesic; Z79.899 Other long term (current) drug therapy
CPT/HCPCS: 25609; 64417; 76942; 73100; C1713 ×2; J2250; J0690 ×2; J2405; J2001; J3010; J2795; J2370; J2704; 64415

== ENCOUNTER → 2024-05-17 | Outpatient (CLI) | payer MEDICARE ==
--- NOTE | 2024-05-17 15:24 | P.PAINCN ---
History of Present Illness - History of Present Illness This is a 73-year-old pleasant gentleman who had a fall on ice in February his year since then he has been having low back pain radiating down to left lower extremity. Pain is located in the low back going down to left lower extremity in the back of left calf and lateral aspect of left foot area. Pain is there all the time with any activity that makes his pain worse. Medication makes his pain slightly controllable. Denies any bowel or bladder dysfunction. Complains of some weakness in his left lower extremity. Denies any loss of sensation in lower extremities. Past Medical History Past Medical History: Hypertension History of Any Multi-Drug Resistant Organisms: None Reported Past Surgical History: No Surgical Hx Reported Additional Past Surgical History / Comment(s): colonoscopy Past Anesthesia/Blood Transfusion Reactions: No Reported Reaction Past Psychological History: No Psychological Hx Reported Smoking Status: Never smoker Past Alcohol Use History: None Reported Additional Past Alcohol Use History / Comment(s): quit smoking 40 yrs ago, smoked 5 yrs Past Drug Use History: Marijuana Additional Drug Use History / Comment(s): rarely uses recreational marijuana - Past Family History Mother Family Medical History: Cancer Medications and Allergies Home Medications Medication Instructions Recorded Confirmed Type Losartan-Hctz 50-12.5 mg [Hyzaar 1 tab PO DAILY 04/30/21 05/04/21 History 50-12.5] HYDROcodone/APAP 7.5-325MG [[place] 1 tab PO Q6HR PRN 05/04/21 05/04/21 History 7.5-325] Acetaminophen-Codeine 300-30mg 1 tab PO Q6H PRN #21 tablet 05/05/21 Rx [Tylenol w/codeine #3] Allergies Allergy/AdvReac Type Severity Reaction Status Date / Time No Known Allergies Allergy Verified 05/04/21 09:03 Physical Exam Emitted physical exam secondary to excruciating pain. Lumbar spine-significant tenderness in the midline and paraspinal areas mostly on the left side. Lumbosacral spine flexion hyperextension rotation is limited secondary to pain. Motor strength-left knee flexion extension left ankle flexion extension 4/5 on the left side. 5/5 on right side. Deep tendon reflexes right ankle right knee, left knee 2+. Left ankle 1+. Straight leg raising test positive left side Sensation to touch grossly intact bilaterally. Assessment and Plan Assessment: 1. Lumbar disc herniation. 2. S1 radiculopathy. 3. Lumbar spinal stenosis. Plan: Will schedule for L5-S1 lumbar epidural steroid injection. Discussed the procedure and possible complications which may include infection bleeding nerve damage paralysis aggravation of pain. Patient understands and all questions were answered. PQRS Measure Charge Sheet PQRS Narrative: Smoking Status Former smoker Home Medications: Ambulatory Orders Losartan-Hctz 50-12.5 mg [Hyzaar 50-12.5] 1 tab PO DAILY 04/30/21 HYDROcodone/APAP 7.5-325MG [[place] 7.5-325] 1 tab PO Q6HR PRN 05/04/21 Acetaminophen-Codeine 300-30mg [Tylenol w/codeine #3] 1 tab PO Q6H PRN #21 tablet 05/05/21
[2024-05-17 16:10] VITALS: BP 142/81; PULSE 104; RESP 16; TEMP 98
== END ==
LOC: PNWHC3 14:15
PROVIDERS: ATTEND Pain Medicine Interventional Pain Medicine
DX: M48.061 Spinal stenosis, lumbar region without neurogenic claudication (principal); M54.18 Radiculopathy, sacral and sacrococcygeal region; M51.26 Other intervertebral disc displacement, lumbar region; Z87.891 Personal history of nicotine dependence
CPT/HCPCS: 99202

== ENCOUNTER 2024-06-05 09:09 | Day surgery (SDC) | payer MEDICARE ==
[2024-06-05] MEDS ORDERED: LACTATED RINGERS 1,000 ML IV SCH (09:18)
[2024-06-05 09:27] VITALS: RESP 16; TEMP 98.1
[2024-06-05] MEDS ORDERED: IOPAMIDOL M200 10 ML VIAL ONE (10:09)
[2024-06-05] MEDS ORDERED: methylPREDNISolone ACETATE 80 MG/ML 1 ML VIAL ONE (10:09)
--- NOTE | 2024-06-05 10:16 | P.PCN ---
Date of Procedure: 06/05/24 Procedure(s) Performed: PREOPERATIVE DIAGNOSIS: 1- Lumbar herniated disc disease. 2-Lumbar spinal stenosis. 3-lumbar radiculopathy POSTOPERATIVE DIAGNOSIS: Same as preop diagnosis. PROCEDURE 1. Lumbar epidural steroid injection under fluoroscopic guidance at the L5-S1 level. (Fluoroscopy imaging was available in radiology department) 2. Lumbar epidurogram. ANESTHESIA: Local infiltration for skin and subcu tissue with lidocaine 1% 3 mL EBL: Minimal PROCEDURE INDICATION: The patient with low back pain and radiculitis symptoms unresponsive to conservative treatment. Fluoroscopy was used to optimize visualization of the needle placement and to maximize safety. PROCEDURE DESCRIPTION / TECHNIQUE: The patient was seen and identified in the preoperative area. Risks, benefits, complications including but not limited to infections ,bleeding ,allergic reaction to the medications ,nerve damage and not complete pain releife , and alternatives were discussed with the patient. The patient agreed to proceed with the procedure and signed the consent. IV was started, and vital signs were stable. Patient was taken to the OR and time out was completed. The patient was placed in the prone position on procedure table and a pillow was placed under the abdomen to reduce lumbar lordosis. The lumbosacral area was prepped and draped in the usual sterile fashion.ere closely monitored during the procedure. Vital signs was monitered during the entire procedure. Using anterior-posterior fluoroscopy, the L5-S1 interlaminar space was identified and the skin over this site was marked and then infiltrated with 1% lidocaine subcutaneously. Subsequently, a 20-gauge Tuohy epidural needle was inserted and advanced toward the epidural space using the ``Loss of resistance technique and guided by AP and lateral fluoroscopy. The correct needle position in the epidural space was verified with the injection of 2 mL of the water soluble contrast dye Isovue 200 contrast and observing an excellent epidurogram with the epidural spread of the dye, after negative aspiration for blood and CSF and in the absence of paresthesias. Again after negative aspiration, a 6 ml mixture containing 60 mg of Depo-medrol ( Preservetive Free ), and 2 ml of preservative free Normal Saline, and 2 ml of preservative free lidocaine 1% solution was injected and a washout of epidurogram was seen. Needle was withdrawn intact, skin was cleansed, and bandages were applied. COMPLICATIONS: None DISPOSITION / PLANS: The patient was placed in a supine position and transferred to the recovery area in a stable condition for observation. There was no evidence of lower extremity motor or sensory deficit after the procedure. Patient was discharged from the recovery room after meeting discharge criteria. Home discharge instructions were given to the patient by the staff. The patient was reexamined prior to discharge. The patient will schedule a follow up in the clinic in 2-4 weeks
--- NOTE | 2024-06-05 10:25 | FL ---
EXAMINATION TYPE: FL guided pain mgmt statistic DATE OF EXAM: 06/05/2024 CLINICAL INDICATION: Male, 73 years old with history of LOW BACK PAIN LESI; PHH, pain TECHNIQUE: Fluoroscopy. COMPARISON: None. FINDINGS: Fluoroscopic guidance was provided during pain relief procedure performed by Dr. Carcamo . A total of 3.5 seconds of fluoroscopic time was utilized during the procedure and one image was ac quired. Image acquired shows needle localization at L5 level. Degeneration changes of the visualized joints. Total DAP: 0.99582 mGym2. IMPRESSION: As Above. [facility], , 06/05/2024 10:23 AM
[2024-06-05 10:26] VITALS: PULSE 89
[2024-06-05 10:52] VITALS: BP 124/74
== END 2024-06-05 10:53 | disposition home or self-care (01) ==
LOC: ORPAIN 09:09
PROVIDERS: ATTEND Specialist
DX: M51.16 Intervertebral disc disorders with radiculopathy, lumbar region (principal); M48.061 Spinal stenosis, lumbar region without neurogenic claudication
CPT/HCPCS: 62323; Q9966; J1010